=== PATIENT | female | born 1945 | race Caucasian/White ===

== ENCOUNTER 2018-11-01 09:07 | Day surgery (SDC) | payer OTHER | END 2018-11-01 15:10 | disposition home or self-care (01) | LOC: AMB-ENDOS 09:07 | DX: D12.3 Benign neoplasm of transverse colon (principal) ==

== ENCOUNTER 2018-12-13 13:00 | Inpatient (IN) | payer OTHER ==
[~2018-12-13] VITALS: Ht 154.9 cm; Wt 63.5 kg
[2018-12-13] MEDS ORDERED: LISINOPRIL40 MG (13:57)
[2018-12-13] MEDS ORDERED: AMLODIPINE BESYL5 MG (13:57)
[2018-12-13] MEDS ORDERED: ARICEPT5 MG (13:58)
[2018-12-22] MEDS ORDERED: ULTRACET PO (16:45)
[2018-12-22] MEDS ORDERED: INTESTINEX680 M1 PO (16:46)
== END 2018-12-22 18:38 | disposition home or self-care (01) | DRG 331 ==
LOC: EDSTATUS 13:00 → ADM 13:00 → SURH 12-19 06:00 → O/R 12-19 06:00 → SURH 12-19 07:00
PROVIDERS: ADMIT Surgery
PROC: 07TB4ZZ Resection of Mesenteric Lymphatic, Percutaneous Endoscopic Approach (ICD-10-PCS; 2018-12-19)
PROC: 0DTF4ZZ Resection of Right Large Intestine, Percutaneous Endoscopic Approach (ICD-10-PCS; principal; 2018-12-19 07:00)
DX: D12.2 Benign neoplasm of ascending colon (principal); R59.0 Localized enlarged lymph nodes